=== PATIENT | male | born 1970 | race African-American/Black ===

== ENCOUNTER 2019-06-05 06:23 | Emergency (ER) | payer OTHER ==
[~2019-06-05] VITALS: Ht 172.7 cm; Wt 105.2 kg
--- NOTE | 2019-06-05 06:40 | PHYS DOC ---
Past Medical History Additional Information: nonsmoker Adult General Chief Complaint Chief Complaint: Palpitations HPI HPI Patient is a 48-year-old male with a past medical history of hypertension and is presenting to the emergency department with chest pain and palpitations. Patient states that around 45 minutes ago he sat down to eat breakfast and became short of breath and felt his heart racing. Patient states that this is never happened to him before. Patient states that along with the heart racing he felt chest pain that started in the middle and radiated left. Patient has no history of heart disease. Patient states that he has a family history of heart disease. Patient states that he had a negative stress test done but he doesn't remember how long ago. Patient reports that the feeling of his heart racing has gone away and that he has no more chest discomfort. Patient denies fever, chills, nausea, vomiting, abdominal pain, constipation, and diarrhea. Patient denies trauma. Review of Systems Review of Systems Constitutional: Denies fever or chills Eyes: Denies redness or eye pain HENT: Denies nasal congestion or sore throat Respiratory: Denies cough, reports shortness of breath Cardiovascular: Reports chest pain and palpitations GI: Denies abdominal pain, nausea, or vomiting : Denies dysuria or hematuria Musculoskeletal: Denies back pain or joint pain Integument: Denies rash or skin lesions Neurologic: Denies headache, focal weakness or sensory changes Complete systems were reviewed and found to be within normal limits, except as documented in this note. Current Medications Current Medications Current Medications Medications (Trade) Dose Ordered Sig/Cecille Start Time Stop Time Status Last Admin Dose Admin Sodium Chloride 1,000 ml @ 1,000 mls/hr 1X ONCE 06/05/19 06:45 06/05/19 07:44 06/05/19 06:44 1,000 MLS/HR Allergies Allergies Allergies Coded Allergies Type Severity Reaction Last Updated Verified No Known Drug Allergies 06/05/19 No Physical Exam Physical Exam Constitutional: Well developed, well nourished, no acute distress, non-toxic appearance HENT: Normocephalic, atraumatic, oropharynx moist Eyes: Conjunctiva normal, no discharge Neck: Normal range of motion, no tenderness, supple Cardiovascular: Heart rate normal, regular rhythm Lungs & Thorax: Bilateral breath sounds clear to auscultation, no wheezing Abdomen: Soft, no tenderness Skin: Warm, dry, no erythema, no rash Back: No tenderness, no CVA tenderness Extremities: No tenderness, ROM intact, no edema Neurologic: Alert and oriented X 3, no focal deficits noted Psychologic: Affect normal, judgement normal, mood normal Current Patient Data Vital Signs Vital Signs Date Time Temp Pulse Resp B/P (MAP) Pulse Ox O2 Delivery O2 Flow Rate FiO2 06/05/19 06:24 97.6 102 20 156/97 (116) 96 Room Air 97.6 Lab Values Laboratory Tests Test 06/05/19 06:45 White Blood Count 6.7 x10^3/uL (4.0-11.0) Red Blood Count 5.84 x10^6/uL (4.30-5.70) H Hemoglobin 15.6 g/dL (13.0-17.5) Hematocrit 47.6 % (39.0-53.0) Mean Corpuscular Volume 82 fL (79-100) Mean Corpuscular Hemoglobin 27 pg (25-35) Mean Corpuscular Hemoglobin Concent 33 g/dL (31-37) Red Cell Distribution Width 13.7 % (11.5-14.5) Platelet Count 185 x10^3/uL (140-400) Neutrophils (%) (Auto) 55 % (31-73) Lymphocytes (%) (Auto) 33 % (24-48) Monocytes (%) (Auto) 8 % (0-9) Eosinophils (%) (Auto) 3 % (0-3) Basophils (%) (Auto) 1 % (0-3) Neutrophils # (Auto) 3.7 x10^3/uL (1.8-7.7) Lymphocytes # (Auto) 2.2 x10^3/uL (1.0-4.8) Monocytes # (Auto) 0.5 x10^3/uL (0.0-1.1) Eosinophils # (Auto) 0.2 x10^3/uL (0.0-0.7) Basophils # (Auto) 0.1 x10^3/uL (0.0-0.2) Sodium Level 136 mmol/L (136-145) Potassium Level 3.9 mmol/L (3.5-5.1) Chloride Level 100 mmol/L (98-107) Carbon Dioxide Level 26 mmol/L (21-32) Anion Gap 10 (6-14) Blood Urea Nitrogen 15 mg/dL (8-26) Creatinine 1.0 mg/dL (0.7-1.3) Estimated GFR (Cockcroft-Gault) 79.1 BUN/Creatinine Ratio 15 (6-20) Glucose Level 268 mg/dL (70-99) H Calcium Level 9.5 mg/dL (8.5-10.1) Magnesium Level 1.8 mg/dL (1.8-2.4) Total Bilirubin 0.4 mg/dL (0.2-1.0) Aspartate Amino Transferase (AST) 17 U/L (15-37) Alanine Aminotransferase (ALT) 28 U/L (16-63) Alkaline Phosphatase 107 U/L (46-116) Creatine Kinase 227 U/L (39-308) Creatine Kinase MB (Mass) 1.9 ng/mL (0.0-3.6) Creatine Kinase MB Relative Index 0.8 % (0-4) Troponin I Quantitative < 0.017 ng/mL (0.000-0.055) DB-Yml-U-Type Natriuretic Peptide 6 pg/mL (0-124) Total Protein 7.9 g/dL (6.4-8.2) Albumin 4.3 g/dL (3.4-5.0) Albumin/Globulin Ratio 1.2 (1.0-1.7) Lipase 116 U/L (73-393) Thyroid Stimulating Hormone (TSH) 2.525 uIU/mL (0.358-3.74) Free Thyroxine 1.00 ng/dL (0.76-1.46) Free Triiodothyronine (T3) pg/mL Pending Laboratory Tests 06/05/19 06:45 Laboratory Tests 06/05/19 06:45 EKG EKG EKG at 0628 shows sinus rhythm at 92 BPM, no ST elevations Radiology/Procedures Radiology/Procedures [] Course & Med Decision Making Course & Med Decision Making Pertinent Lab studies reviewed. (See chart for details) Patient is a 48-year-old male with a past medical history of hypertension and is presenting to emergency department with chest pain and palpitations. Patient was seen and examined at bedside. Physical exam significant for lungs clear to auscultation, heart regular rate and rhythm, no murmur. Labs and EKG were ordered. EKG at 0628 shows sinus rhythm at 92 bpm, patient states that he feels different than the initial palpitations that he felt and feels better now. Glucose elevated, all other labs at baseline. Discussed the need for further follow-up with patient, patient in agreement with discharge. Patient stable for discharge with outpatient follow-up with PCP or cardiology. Discussed findings and plan with patient, who acknowledges understanding and agreement. Dragon Disclaimer Dragon Disclaimer This electronic medical record was generated, in whole or in part, using a voice recognition dictation system. Departure Departure Impression: Primary Impression: Heart palpitations Disposition: 01 HOME, SELF-CARE Condition: STABLE Referrals: HAWA SANCHES MD Patient Instructions: Palpitations, [id number] Additional Instructions: Please follow-up with PCP or cardiology as you may require further heart monitoring i.e. Holter monitor AMANDA ESPANA DO Jun 05, 2019 06:40
[2019-06-05] MEDS ORDERED: IV NORMAL SALINE 1000ML BAG 1,000 ML IV ONE (06:45)
[2019-06-05 06:59] LABS: BASO # 0.1 x10^3/uL (0.0-0.2); BASO % 1 % (0-3); EOS # 0.2 x10^3/uL (0.0-0.7); EOS % 3 % (0-3); HEMATOCRIT 47.6 % (39.0-53.0); HEMOGLOBIN 15.6 g/dL (13.0-17.5); LYMPH # 2.2 x10^3/uL (1.0-4.8); LYMPH % 33 % (24-48); MEAN CORPUSCULAR HEMOGLOBIN 27 pg (25-35); MEAN CORPUSCULAR HGB CONC 33 g/dL (31-37); MEAN CORPUSCULAR VOLUME 82 fL (79-100); MONO # 0.5 x10^3/uL (0.0-1.1); MONO % 8 % (0-9); NEUT # 3.7 x10^3/uL (1.8-7.7); NEUT % 55 % (31-73); PLATELET COUNT 185 x10^3/uL (140-400); RED BLOOD COUNT 5.84 x10^6/uL (4.30-5.70); RED CELL DISTRIBUTION WIDTH 13.7 % (11.5-14.5); WHITE BLOOD COUNT 6.7 x10^3/uL (4.0-11.0)
[2019-06-05 07:07] LABS: CALCIUM 9.5 mg/dL (8.5-10.1); GFR 79.1; POTASSIUM 3.9 mmol/L (3.5-5.1)
[2019-06-05 07:13] LABS: ALBUMIN 4.3 g/dL (3.4-5.0); ALBUMIN/GLOBULIN RATIO 1.2 (1.0-1.7); MAGNESIUM 1.8 mg/dL (1.8-2.4); TOTAL BILIRUBIN 0.4 mg/dL (0.2-1.0); TOTAL PROTEIN 7.9 g/dL (6.4-8.2)
[2019-06-05 07:25] LABS: THYROID STIM HORMONE (TSH) 2.525 uIU/mL (0.358-3.74)
--- NOTE | 2019-06-05 07:25 | EKG ---
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
[2019-06-05 07:29] VITALS: BP 124/74
== END 2019-06-05 08:01 | disposition home or self-care (01) ==
LOC: ER 06:23
DX: R00.2 Palpitations (principal); R07.89 Other chest pain; I10 Essential (primary) hypertension
CPT/HCPCS: 36415; 80053; 82553; 83690; 83735; 83880; 84439; 84443; 84481; 84484; 85025; 93005; 99285; J7030

== ENCOUNTER → 2019-07-16 | Outpatient (CLI) | payer OTHER ==
--- NOTE | 2019-07-16 13:28 | RAD ---
MR#: [id number] Date of Study: 07/16/2019 Ordering Physician: HAWA PILLAI, Referring Physician: KEITH GARCIA Tech: RT Marleni (José Miguel) (N) APPROVED REPORT Test Type: Exercise Stress Nurse/Tech: Leatha Willingham RN Test Indications: palpitations, chest pressure Cardiac History: Hypertension, Diabetes Medications: See Electronic Medical Record Medical History: See Electronic Medical Record Resting ECG: SR Resting Heart Rate: 91 bpm Resting Blood Pressure: 150/85mmHg Pretest Chest Pain: No chest pain Nurse/Tech Notes S1,S2 and lungs clear to auscultation. Consent: The procedure was explained to the patient in lay terms. Informed consent was witnessed. Davis eout was entered into [employer]. History and Stress Test performed by RT Marleni (José Miguel) (N) Stress Symptoms Fatigue POST EXERCISE Reason for Termination: Reached target heart rate, Fatigue Target HR: Yes Max HR: 172 bpm 101% of Maximum Predicted HR: 170 bpm Exercise duration: 8:30 min:sec, 3 Stage Exercise capacity: 10.0METs Max Blood Pressure: 160/80mmHg Blood Pressure response to exercise: Normal blood pressure response during stress. Heart Rate response to exercise: WNL Chest Pain: No. Arrhythmia: No. ST Change: No. INTERPRETATION Stress EKG Conclusion: The resting EKG shows a sinus rhythm and nonspecific ST-T wave changes. The stress EKG shows no significant changes from baseline. No EKG evidence of stressed induced ischemia. Imaging Protocol IMAGE PROTOCOL: Rest Tc-99m/stress Tc-99m 1 day Rest: Stress: Viability: Radiopharm.Tc99m SfewujwnpUg70n Sestamibi Lgio16cGl 33mCi Duration 15min. 10min. Img Date 07/16/2019 07/16/2019 Inj-Img Hnce32tzt. 60min. Rest Admin Site:IV - Left HandAdministrator:RT Marleni (José Miguel)(N) Stress Admin Site: IV - Left HandAdministrator: RT Marleni (José Miguel)(N) STRESS DATA End Diast. Vol.69.0mlAv. Heart Jgot914.0bpm End Syst. Vol.11.0mlCO Index BSA0.0L/min Myocardial Yvtz666.0gEject. Cqegvulm46.0% Stress Rates Pk. Fill Rate6.61EDV/secLVtime Pk. Fill 146.79msec Pk. Empty Rate7.17ESV/secLVtime Pk. Eject92.60msec 1/3 Pk. Fill1.35EDV/sec Stress Scores Regional WT1.00Summed WT4.00 Regional WM0.00Summed WM0.00 LV Perfusion The stress scans show no significant defects. The rest scans show no significant defects. Nuclear imaging shows no reversible ischemia or infarct. Wall Motion Left ventricular systolic function is normal with an ejection fraction of greater than 70%. LV Perf. Quant 17 Seg. SSS0.00 17 Seg. SRS1.00 17 Seg. SDS0.00 Stress Defect Extent (% LAD)0.00Rest Defect Extent (% LAD)7.50Rev. Defect Extent (% LAD)0.00 Stress Defect Extent (% LCX) 0.00Rest Defect Extent (% LCX)0.00Rev. Defect Extent (% LCX)0.00 Stress Defect Extent (% RCA)0.00Rest Defect Extent (% RCA)0.00Rev. Defect Extent (% RCA)0.00 Stress Defect Extent (% EV)0.00Rest Defect Extent (% EV)2.60Rev. Defect Extent (% EV)0.00 Conclusion 1. Good exercise tolerance. 2. No EKG evidence of stress-induced ischemia. 3. Nuclear imaging shows no reversible ischemia or infarct. 4. Normal left ventricular systolic function with an ejection fraction of greater than 70%. 5. Low risk treadmill nuclear stress test. Signed by : Hawa Pillai MD Electronically Approved : 07/16/2019 13:27:20
== END | disposition home or self-care (01) ==
LOC: NM 08:38
PROVIDERS: ATTEND Internal Medicine Cardiovascular Disease
DX: R00.2 Palpitations (principal); R07.89 Other chest pain
CPT/HCPCS: 78452; 93017; A9500

== ENCOUNTER 2020-08-08 05:20 | Emergency (ER) | payer OTHER ==
[~2020-08-08] VITALS: Ht 172.7 cm; Wt 101.8 kg
[2020-08-08] MEDS ORDERED: ADENOSINE 6 MG/2 ML VIAL. IV ONE (05:28)
--- NOTE | 2020-08-08 05:42 | PHYS DOC ---
Past Medical History Past Medical History: Diabetes-Type II, Hypertension Past Surgical History: No Surgical History Smoking Status: Never Smoker Alcohol Use: Occasionally Drug Use: None General Adult EDM: Chief Complaint: RAPID HEART RATE HPI: HPI: 49-year-old male with history of hypertension, diabetes, who presents for evaluation of sudden onset of palpitations while at work, beginning 20 minutes prior to arrival. Associated with chest tightness but no dyspnea. Also reports mild lightheadedness. He reports a similar episode a couple years ago, that resolved prior to presentation to the ED. No known prior history of dysrhythmia. He takes losartan and hydrochlorothiazide for hypertension. Review of Systems: Review of Systems: Gen: No fever, chills. CV: Reports chest pressure, palpitations. Resp. No SOB, cough. GI: No abd pain, N/V. Neuro: No ADAME, weakness. Reports lightheadedness. MSK: No myalgia, arthralgia. Skin: No acute rash or lesion. Remainder of systems reviewed and negative unless otherwise specified. Heart Score: Risk Factors: Risk Factors: DM, Current or recent (<one month) smoker, HTN, HLP, family his tory of CAD, obesity. Risk Scores: Score 0 - 3: 2.5% MACE over next 6 weeks - Discharge Home Score 4 - 6: 20.3% MACE over next 6 weeks - Admit for Clinical Observation Score 7 - 10: 72.7% MACE over next 6 weeks - Early Invasive Strategies Current Medications: Current Medications Medications (Trade) Dose Ordered Sig/Cecille Start Time Stop Time Status Last Admin Dose Admin Adenosine (Adenocard) 6 mg STK-MED ONCE 08/08/20 05:28 08/08/20 05:28 DC Metoprolol Succinate (Toprol Xl) 25 mg 1X ONCE 08/08/20 05:45 08/08/20 05:46 UNV Sodium Chloride 1,000 ml @ 1,000 mls/hr 1X ONCE 08/08/20 05:45 08/08/20 06:44 UNV Allergies: Allergies: Allergies Coded Allergies Type Severity Reaction Last Updated Verified No Known Drug Allergies 06/05/19 No Physical Exam: PE: Gen: NAD. Head: NC/AT. Eyes: No scleral icterus. No conjunctival injection. ENT: MMM. Posterior OP clear. Neck: Supple. CV: Tachycardic and regular 160s. Peripheral pulses intact. Resp: CTAB. Abd: Soft. NT. ND. MSK: No peripheral cyanosis. No edema. Neuro: A&Ox3. Strength & sensation grossly intact throughout. Skin. Warm. Dry. Psych: Appropriate mood & affect. EKG: EKG: EKG at 0526. SVT. Heart rate 165. Nonspecific ST-T changes. No STEMI. Interpreted by me. Repeat EKG at 0530. Sinus rhythm. Heart rate 84. Normal intervals. No STEMI. Interpreted by me. Radiology/Procedures: Radiology/Procedures: [] Course & Med Decision Making: Course & Med Decision Making Pertinent Labs and Imaging studies reviewed. 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 Associated with mild chest pressure and lightheadedness but no dyspnea. He was ultimately found to be in SVT with a heart rate of 165, amenable to modified Valsalva maneuver, now in sinus rhythm. His symptoms have since resolved. Will obtain basic lab work and chest x-ray. Will administer IV fluids and Toprol-XL 25 mg PO. Signed out to Dr. Mendoza pending lab work, chest x-ray, and disposition. Sharon Disclaimer: Sharon Disclaimer: This electronic medical record was generated, in whole or in part, using a voice recognition dictation system. Departure Departure Impression: Primary Impression: SVT (supraventricular tachycardia) Condition: STABLE Referrals: PAU VALLADARES MD (PCP) HAWA SANCHES MD Patient Instructions: Supraventricular Tachycardia, Hcap-xd-Gtyv Scripts Metoprolol Succinate (METOPROLOL SUCCINATE ( XL )) 25 Mg Tab.er.24h 1 TAB PO DAILY, #30 TAB 5 Refills Prov: LE,SAM H DO 08/08/20 LE,SAM H DO Aug 08, 2020 05:42
[2020-08-08] MEDS ORDERED: IV NORMAL SALINE 1000ML BAG 1,000 ML IV ONE (05:45)
[2020-08-08] MEDS ORDERED: METOPROLOL SUCC 24HR ER 25 MG TAB.ER.24H. PO ONE (05:45)
[2020-08-08] MEDS ORDERED: METO-239 PO (05:51)
--- NOTE | 2020-08-08 06:13 | EKG ---
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
--- NOTE | 2020-08-08 06:13 | EKG ---
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
[2020-08-08 06:16] LABS: BASO # 0.1 x10^3/uL (0.0-0.2); BASO % 1 % (0-3); EOS # 0.2 x10^3/uL (0.0-0.7); EOS % 3 % (0-3); HEMATOCRIT 47.9 % (39.0-53.0); HEMOGLOBIN 15.7 g/dL (13.0-17.5); LYMPH # 1.9 x10^3/uL (1.0-4.8); LYMPH % 27 % (24-48); MEAN CORPUSCULAR HEMOGLOBIN 27 pg (25-35); MEAN CORPUSCULAR HGB CONC 33 g/dL (31-37); MEAN CORPUSCULAR VOLUME 81 fL (79-100); MONO # 0.6 x10^3/uL (0.0-1.1); MONO % 9 % (0-9); NEUT # 4.1 x10^3/uL (1.8-7.7); NEUT % 59 % (31-73); PLATELET COUNT 203 x10^3/uL (140-400); RED BLOOD COUNT 5.88 x10^6/uL (4.30-5.70); RED CELL DISTRIBUTION WIDTH 13.5 % (11.5-14.5); WHITE BLOOD COUNT 6.9 x10^3/uL (4.0-11.0)
--- NOTE | 2020-08-08 06:18 | RAD ---
EXAM: CHEST ONE VIEW. HISTORY: Palpitations. COMPARISON: None. FINDINGS: A frontal view of the chest is obtained. There are no confluent infiltrates. There is no pneumothorax or pleural effusion. The heart is not en larged. IMPRESSION: 1. No confluent infiltrates. Electronically signed by: Kelly Dupree MD (08/08/2020 6:16 AM) [facility]
[2020-08-08 06:25] LABS: CALCIUM 9.5 mg/dL (8.5-10.1); CREATININE 1.1 mg/dL (0.7-1.3); GFR 85.4; POTASSIUM 3.6 mmol/L (3.5-5.1)
[2020-08-08 07:30] VITALS: BP 124/80
== END 2020-08-08 08:07 | disposition home or self-care (01) ==
LOC: ER 05:20
DX: I47.1 Supraventricular tachycardia (principal); E11.9 Type 2 diabetes mellitus without complications; I10 Essential (primary) hypertension
CPT/HCPCS: 36415; 71045; 80048; 83735; 84484; 85025; 93005; 96360; 99285; J7030